=== PATIENT | female | born 1985 ===

== ENCOUNTER 2017-07-05 10:38 | Outpatient (CLI) | payer OTHER | END 2017-07-05 15:42 | disposition home or self-care (01) | LOC: RX STUDY 10:38 | DX: N94.89 Other specified conditions associated with female genital organs and menstrual cycle (principal) ==

== ENCOUNTER 2017-07-05 10:49 | Outpatient (CLI) | payer OTHER | END 2017-07-05 15:42 | disposition home or self-care (01) | LOC: SONOGRAMA 10:49 | DX: N94.89 Other specified conditions associated with female genital organs and menstrual cycle (principal) ==